=== PATIENT | male | born 1960 | race Caucasian/White ===

== ENCOUNTER 2019-12-24 09:18 | Emergency (ER) | payer MEDICAID ==
[~2019-12-24] VITALS: Ht 175.3 cm; Wt 95.3 kg
[2019-12-24 09:22] VITALS: BP 188/110
[2019-12-24] MEDS ORDERED: DEXAMETHASONE 10 MG/ML VIAL IM ONE (09:45)
[2019-12-24 10:15] VITALS: BP 178/104
== END 2019-12-24 10:05 | disposition home or self-care (01) ==
LOC: MED 09:18
DX: R06.2 Wheezing (principal); R05 Cough; J45.909 Unspecified asthma, uncomplicated; I10 Essential (primary) hypertension
CPT/HCPCS: 96372; 99283; J1100

== ENCOUNTER 2020-01-02 02:51 | Emergency (ER) | payer MEDICAID, SELFPAY ==
[~2020-01-02] VITALS: Ht 172.7 cm; Wt 95.3 kg
[2020-01-02 02:55] VITALS: BP 157/94
[2020-01-02] MEDS ORDERED: ALBUTEROL HFA MDI 90 MCG/ACTUATION 8 GM INH ONE (04:40)
[2020-01-02] MEDS ORDERED: predniSONE 20 MG TAB PO ONE (04:40)
[2020-01-02 06:36] VITALS: BP 157/94
== END 2020-01-02 06:34 | disposition home or self-care (01) ==
LOC: MED 02:51 → EEVIPCON 02:51 → MED 06:34
DX: Z03.818 Encounter for observation for suspected exposure to other biological agents ruled out (principal); J45.901 Unspecified asthma with (acute) exacerbation; I10 Essential (primary) hypertension; R06.2 Wheezing
CPT/HCPCS: 71045; 87635; 87804; 94664; 99284; J7512; Q0092; 36415